=== PATIENT | male | born 1980 | race Caucasian/White ===

== ENCOUNTER 2017-08-04 13:04 | Emergency (ER) | payer OTHER | END 2017-08-04 14:29 | disposition home or self-care (01) | LOC: D.ER 13:04 | DX: S89.92XA Unspecified injury of left lower leg, initial encounter (principal); X58.XXXA Exposure to other specified factors, initial encounter; Y93.67 Activity, basketball; Y92.019 Unspecified place in single-family (private) house as the place of occurrence of the external cause; M25.562 Pain in left knee ==

== ENCOUNTER 2017-09-02 15:52 | Emergency (ER) | payer OTHER ==
[2017-09-02 17:05] LABS: APPEARANCE CLEAR (CLEAR); BILIRUBIN NEGATIVE (NEGATIVE); COLOR STRAW (YELLOW); GLUCOSE NEGATIVE (NEGATIVE); KETONE NEGATIVE (NEGATIVE); NITRITE NEGATIVE (NEGATIVE); PROTEIN NEGATIVE (NEGATIVE); SPECIFIC GRAVITY 1.015 (1.005-1.020); UROBILINOGEN NORMAL (NORMAL)
[2017-09-02 17:06] LABS: BACTERIA FEW /hpf (NONE SEEN); EPITHELIAL CELLS 0-5 /hpf (0-5); RED CELLS - URINE RARE /hpf (0-5); WHITE CELLS - URINE OCC /hpf (0-5)
[2017-09-02 18:34] LABS: BASOPHILS 0.2 % (0-2); EOSINOPHILS 0.8 % (0-7); HEMATOCRIT 42.1 % (42.0-54.0); IMMATURE GRANULOCYTES 0.5 % (0-5); LYMPHOCYTES 31.4 % (15-50); MCH 32.5 pg (26.0-34.0); MCHC 35.6 g/dL (31.0-37.0); MCV 91.1 fL (80.0-100.0); MEAN PLATELET VOLUME 10.6 fL (7.4-10.4); MONOCYTES 7.1 % (2-11); PLATELET COUNT 191 10x3/uL (130-400); RBC 4.62 10x6/uL (4.20-6.10); RDW 12.7 % (11.5-14.5); WBC 8.6 10x3/uL (4.8-10.8)
[2017-09-02 18:54] LABS: ALBUMIN 3.7 g/dL (3.4-5.0); ALKALINE PHOSPHATASE 53 U/L (46-116); ALT (SGPT) 63 U/L (10-68); BILIRUBIN - TOTAL 0.35 mg/dL (0.2-1.3); CALC OSMOLALITY 285 mosm/kg (275-300); CALCIUM 9.5 mg/dL (8.5-10.1); CARBON DIOXIDE 27.6 mmol/L (21.0-32.0); CHLORIDE - SERUM 105 mmol/L (98-107); CREATININE - SERUM 1.1 mg/dL (0.6-1.3); GLUCOSE 91 mg/dL (74-106); POTASSIUM - SERUM 3.9 mmol/L (3.5-5.1); PROTEIN - SERUM 6.7 g/dL (6.4-8.2); SODIUM 143 mmol/L (136-145); UREA NITROGEN 16 mg/dL (7-18); eGFR NON AFRICAN AMERICAN 80 mL/min (90-120)
== END 2017-09-02 20:00 | disposition home or self-care (01) ==
LOC: D.ER 15:52
PROVIDERS: Emergency Medicine; Nurse Practitioner Family
DX: N39.0 Urinary tract infection, site not specified (principal); R33.9 Retention of urine, unspecified; K21.9 Gastro-esophageal reflux disease without esophagitis